=== PATIENT | female | born 1980 | race Two or more races ===

== ENCOUNTER 2017-11-29 18:46 | Emergency (ER) | payer MEDICAID, OTHER, SELFPAY ==
[~2017-11-29] VITALS: Ht 175.3 cm; Wt 154.9 kg
[2017-11-29 20:58] VITALS: BP 144/94
== END 2017-11-29 21:00 | disposition home or self-care (01) ==
LOC: ED 20:25
DX: M76.9 Unspecified enthesopathy, lower limb, excluding foot (principal)
CPT/HCPCS: 99284

== ENCOUNTER → 2020-07-16 | Outpatient (CLI) | payer MEDICAID | END | disposition home or self-care (01) | LOC: CVU 07:26 | PROVIDERS: ATTEND Internal Medicine Hematology & Oncology | DX: C50.412 Malignant neoplasm of upper-outer quadrant of left female breast (principal) | CPT/HCPCS: 93306 ==